=== PATIENT | female | born 1995 | race Two or more races ===

== ENCOUNTER 2021-02-22 13:44 | Emergency (ER) | payer MEDICAID, OTHER ==
[~2021-02-22] VITALS: Ht 162.6 cm; Wt 70.3 kg
[2021-02-22] MEDS ORDERED: OXYCODONE W/ ACETAMINOPHEN 5/325MG TABLET PO ONE (14:00)
[2021-02-22] MEDS ORDERED: ONDANSETRON ODT 4 MG TAB PO ONE (14:00)
[2021-02-22] MEDS ORDERED: PERCOT PO (18:10)
[2021-02-22] MEDS ORDERED: ONDA-144 PO (18:10)
[2021-02-22 18:49] VITALS: BP 118/64
== END 2021-02-22 19:04 | disposition home or self-care (01) ==
LOC: ER 13:44
DX: R51.9 Headache, unspecified (principal)
CPT/HCPCS: 70450; 72125; 99284; Q0162

== ENCOUNTER 2023-06-03 10:42 | Emergency (ER) | payer SELFPAY ==
[~2023-06-03] VITALS: Ht 165.1 cm; Wt 67.0 kg
[~2023-06-03 10:42] MED LIST: ONDA-144 PO; PERCOT PO
[2023-06-03 14:00] VITALS: BP 110/75; PULSE 75; RESP 16; TEMP 98; O2SAT 100
[2023-06-03] MEDS ORDERED: NAP500T PO (14:09)
[2023-06-03] MEDS: methylPREDNISolone SOD SUCC 125 MG/2 ML VL IM ONE (15:00)
[2023-06-03] MEDS: KETOROLAC TROMETH 30 MG/ML 1ML VIAL IM ONE (15:00)
== END 2023-06-03 15:58 | disposition home or self-care (01) ==
LOC: ER 10:42
DX: M54.12 Radiculopathy, cervical region (principal); Z79.899 Other long term (current) drug therapy
CPT/HCPCS: 96372; 99284; J1885; J2930